=== PATIENT | female | born 1955 | race Caucasian/White ===

== ENCOUNTER 2018-10-01 06:13 | Inpatient (IN) | payer MEDICARE, MEDICAID ==
[~2018-10-01] VITALS: Ht 152.4 cm; Wt 91.3 kg
[2018-10-01] VITALS (44 sets, daily range): BP systolic 105–212; BP diastolic 45–113
[~2018-10-01 06:13] MED LIST: ATOR20TA PO; BECL8.7A6 INH; GABA-529 PO; HYDR-1717 PO; LEVVL SQ; LOSA50TA3 PO; PRO AIR INH; SITA100T11 PO
[2018-10-01] MEDS ORDERED: LINA5TAB PO (08:34)
[2018-10-01] MEDS ORDERED: CYCL5TAB PO (08:34)
[2018-10-01] MEDS ORDERED: LORA10TA7 PO (08:34)
[2018-10-01] MEDS ORDERED: GELATIN SPONGE,ABSORBABLE 12-7MM SPONGE ONE (09:31)
[2018-10-01] MEDS ORDERED: THROMBIN (BOVINE) 5000 UNITS/VIAL TOP ONE ×2 (09:32→09:33)
[2018-10-01] MEDS ORDERED: BACITRACIN 50,000 UNITS/VIAL ONE (09:33)
[2018-10-01] MEDS ORDERED: LIDOCAINE HCL/EPINEPHRINE 1%-EPI 1:100,000 20 ML VIAL ONE (09:33)
[2018-10-01] MEDS ORDERED: PROPOFOL 200MG/20ML VIAL IV ONE (10:58)
[2018-10-01] MEDS ORDERED: GLYCOPYRROLATE 0.2 MG/ML 2ML VIAL ONE (10:58)
[2018-10-01] MEDS ORDERED: MIDAZOLAM HCL 2 MG/2 ML VIAL ONE (10:58)
[2018-10-01] MEDS ORDERED: FENTANYL CITRATE/PF 50MCG/ML 2ML VIAL ONE ×2 (10:58→12:04)
[2018-10-01] MEDS ORDERED: NEOSTIGMINE METHYLSULFATE 1MG/ML 10 ML VIAL ONE (10:58)
[2018-10-01] MEDS ORDERED: ROCURONIUM BROMIDE 10MG/ML VIAL 5ML IV ONE (10:58)
[2018-10-01] MEDS ORDERED: ONDANSETRON HCL 4MG/2ML INJ IV PRN ×3 (11:45→14:00)
[2018-10-01] MEDS ORDERED: HYDROCODONE/APAP 7.5/325MG 1 TAB TABLET PO PRN (11:45)
[2018-10-01] MEDS ORDERED: SUCCINYLCHOLINE CHLORIDE 200MG/10ML IV ONE (12:03)
[2018-10-01] MEDS ORDERED: METOCLOPRAMIDE HCL 10MG/2ML VIAL ONE (12:03)
[2018-10-01] MEDS ORDERED: ESMOLOL HCL 10MG/ML 10ML VIAL IV ONE (12:06)
[2018-10-01] MEDS ORDERED: HYDROMORPHONE HCL/PF 2MG/ML CPJ IV PRN (12:45)
[2018-10-01] MEDS ORDERED: FENTANYL CITRATE/PF 50MCG/ML 2ML VIAL IV PRN (12:45)
[2018-10-01] MEDS ORDERED: MEPERIDINE HCL/PF 25MG/ML CPJ IV PRN (12:45)
[2018-10-01] MEDS ORDERED: MORPHINE SULFATE 2 MG/ML CPJ (NOT FOR IM USE) IV PRN ×2 (12:45→14:00)
[2018-10-01] MEDS ORDERED: NICARDIPINE 100 MG in SODIUM CHLORIDE 0.9% 60 ML IV PRN (13:00)
[2018-10-01] MEDS ORDERED: NALOXONE INJ IV PRN (13:15)
[2018-10-01] MEDS ORDERED: ONDANSETRON INJ IV PRN (13:15)
[2018-10-01] MEDS ORDERED: DIPHENHYDRAMINE INJ IV PRN (13:15)
[2018-10-01] MEDS ORDERED: HYDROMORPHONE PCA 10MG/50ML IV PRN (13:15)
[2018-10-01] MEDS: DEXAMETHASONE 4MG/ML 1ML VIAL IV SCH ×3 (13:31→23:07)
[2018-10-01] MEDS: DEXT 5%/LACTATED RINGERS 1,000 ML IV SCH ×2 (13:38→23:07)
[2018-10-01] MEDS: MORPHINE SULFATE 4 MG/ML CPJ (NOT FOR IM USE) IV PRN (13:47)
[2018-10-01] MEDS ORDERED: IPRATROPIUM/ALBUTEROL 0.5-3(2.5)MG/3ML NEB INH PRN (14:00)
[2018-10-01] MEDS ORDERED: HYDROCODONE/ACETAMINOPHEN 5/325MG TABLET PO PRN (14:00)
[2018-10-01] MEDS ORDERED: CEFAZOLIN SODIUM 1000MG/VIAL IV SCH (14:00)
[2018-10-01] MEDS ORDERED: CLONIDINE 0.1MG TABLET PO PRN (14:00)
[2018-10-01] MEDS ORDERED: DEXTROSE 50% WATER 50ML SYRINGE IV PRN (14:45)
[2018-10-01] MEDS: BLOOD SUGAR DIAGNOSTIC STRIP TEST SCH ×2 (16:57→20:25)
[2018-10-01] MEDS: INSULIN LISPRO 100 UNITS/ML SUBCUT SCH ×2 (17:09→20:25)
[2018-10-01] MEDS ORDERED: LOSA50TA20 MT (19:58)
[2018-10-01] MEDS ORDERED: ZOLP10TA6 MT (20:06)
[2018-10-01] MEDS: CEFAZOLIN 1000MG PREMIX 50 ML IV SCH (20:23)
[2018-10-02] VITALS (75 sets, daily range): BP systolic 98–176; BP diastolic 47–172
[2018-10-02] MEDS: DEXAMETHASONE 4MG/ML 1ML VIAL IV SCH ×2 (05:01→12:02)
[2018-10-02] MEDS: CEFAZOLIN 1000MG PREMIX 50 ML IV SCH ×2 (05:01→13:29)
[2018-10-02 06:11] LABS: HEMATOCRIT. 33.2 % (36.0-48.0); HEMOGLOBIN. 10.1 g/dL (12.0-16.0); MEAN CORPUSCULAR HEMOGLOBIN 22.7 pg (28.0-32.0); MEAN CORPUSCULAR VOLUME 74.7 fL (81.0-99.0); MEAN PLATELET VOLUME 8.3 fl (7.4-10.4); PLATELET 297 x1000/uL (130-400); RED BLOOD CELL COUNT 4.45 mill/uL (4.2-5.4); RED CELL DISTRIBUTION WIDTH 17.2 % (11.6-14.6)
[2018-10-02] MEDS: BLOOD SUGAR DIAGNOSTIC STRIP TEST SCH ×4 (06:24→21:08)
[2018-10-02] MEDS: INSULIN LISPRO 100 UNITS/ML SUBCUT SCH ×4 (06:24→21:07)
[2018-10-02 06:33] LABS: CHLORIDE 101 mEq/L (98-107)
[2018-10-02 06:49] LABS: LDL CHOLESTEROL 119 mg/dL (5-100)
[2018-10-02 06:50] LABS: HDL CHOLESTEROL 59 mg/dL (40-59)
[2018-10-02 06:51] LABS: T4 FREE 1.36 ng/dL (0.76-1.46)
[2018-10-02 08:38] LABS: PLATELET ESTIMATE NORMAL
[2018-10-02] MEDS: DEXT 5%/LACTATED RINGERS 1,000 ML IV SCH (12:08)
[2018-10-02] MEDS ORDERED: MEDICATION NOT ON FORMULARY EA (Losartan Potassium 1 TAB) MT SCH (12:15)
[2018-10-02] MEDS ORDERED: LINAGLIPTIN 5 MG PO SCH (12:15)
[2018-10-02] MEDS ORDERED: INSULIN GLARGINE UD 100 UNITS/ML SYR SUBCUT NR (12:30)
[2018-10-02] MEDS: GABAPENTIN 100MG CAPSULE PO SCH ×2 (13:00→16:53)
[2018-10-02] MEDS ORDERED: MEDICATION NOT ON FORMULARY EA (Gabapentin 100 MG) PO SCH (13:00)
[2018-10-02] MEDS: LOSARTAN POTASSIUM 50 MG TABLET PO SCH (16:53)
[2018-10-02] MEDS: LINAGLIPTIN 5MG TABLET PO SCH (16:54)
[2018-10-02 19:36] LABS: PROTHROMBIN TIME 10.2 sec (9.1-11.1)
[2018-10-02] MEDS ORDERED: LEVOFLOXACIN 500MG PREMIX 100 ML IV SCH (20:00)
[2018-10-02] MEDS ORDERED: ATORVASTATIN CALCIUM 20MG TABLET PO SCH (21:00)
[2018-10-02] MEDS ORDERED: ZOLPIDEM TARTRATE 5MG TABLET PO PRN (21:00)
[2018-10-02] MEDS: INSULIN GLARGINE UD 100 UNITS/ML SYR SUBCUT SCH (21:07)
[2018-10-03] VITALS: BP 151/82
[2018-10-03 04:00] VITALS: BP 163/88
[2018-10-03] MEDS: MORPHINE SULFATE 4 MG/ML CPJ (NOT FOR IM USE) IV PRN (06:19)
[2018-10-03] MEDS: BLOOD SUGAR DIAGNOSTIC STRIP TEST SCH ×2 (06:19→12:20)
[2018-10-03 07:05] LABS: HEMATOCRIT 32.9 % (36.0-48.0); HEMOGLOBIN 10.1 g/dL (12.0-16.0); PLATELET 343 x1000/uL (130-400); RED BLOOD CELL COUNT 4.39 mill/uL (4.2-5.4)
[2018-10-03 07:22] LABS: CHLORIDE 103 mEq/L (98-107)
[2018-10-03 08:00] VITALS: BP 106/69
[2018-10-03] MEDS: GABAPENTIN 100MG CAPSULE PO SCH ×2 (08:19→14:09)
[2018-10-03] MEDS: LOSARTAN POTASSIUM 50 MG TABLET PO SCH (08:19)
[2018-10-03] MEDS: LINAGLIPTIN 5MG TABLET PO SCH (08:19)
[2018-10-03] MEDS: INSULIN LISPRO 100 UNITS/ML SUBCUT SCH ×2 (08:23→14:11)
[2018-10-03] MEDS ORDERED: MEDICATION NOT ON FORMULARY EA (Sitagliptin Phosphate (Januvia) 100 MG) PO SCH (09:00)
[2018-10-03] MEDS ORDERED: INSULIN GLARGINE UD 100 UNITS/ML SYR SUBCUT SCH (10:00)
[2018-10-03] MEDS: INSULIN GLARGINE UD 100 UNITS/ML SYR SUBCUT SCH (11:37)
[2018-10-03 12:00] VITALS: BP 112/67
[2018-10-03 16:00] VITALS: BP 147/71
[2018-10-03 17:00] VITALS: BP 147/71
== END 2018-10-03 17:25 | disposition home health service (06) | DRG 471 ==
LOC: OR 06:13 → MICUSO 06:14 → 6EST 10-02 22:17
PROVIDERS: ADMIT Neurological Surgery; ATTEND Neurological Surgery
PROC: 0RG10K0 Fusion of Cervical Vertebral Joint with Nonautologous Tissue Substitute, Anterior Approach, Anterior Column, Open Approach (ICD-10-PCS; principal; 2018-10-01)
PROC: 4A11X4G Monitoring of Peripheral Nervous Electrical Activity, Intraoperative, External Approach (ICD-10-PCS; 2018-10-01)
DX: M48.02 Spinal stenosis, cervical region (principal); G82.50 Quadriplegia, unspecified; M47.12 Other spondylosis with myelopathy, cervical region; G95.20 Unspecified cord compression; E87.1 Hypo-osmolality and hyponatremia; J45.901 Unspecified asthma with (acute) exacerbation; N39.0 Urinary tract infection, site not specified; E66.2 Morbid (severe) obesity with alveolar hypoventilation; M47.22 Other spondylosis with radiculopathy, cervical region; I10 Essential (primary) hypertension; E78.5 Hyperlipidemia, unspecified; E11.9 Type 2 diabetes mellitus without complications; Z68.39 Body mass index [BMI] 39.0-39.9, adult; Z91.041 Radiographic dye allergy status
CPT/HCPCS: 36415; 71045; 72040; 76000; 80048; 80061; 82962; 83036; 84439; 84443; 85027; 86850; 86900; 88304; 88311; 93970; 95925; 95926; 95928; 95929; 97116; 97163; 97166; C1713; J0330; J0690; J1100; J1170; J1815; J1956; J2250; J2270; J2405; J2704; J2710; J2765; J3010; J3490; J7040; J7121; L0172

== ENCOUNTER 2020-12-15 12:08 | Inpatient (IN) | payer MEDICARE, MEDICAID ==
[~2020-12-15] VITALS: Ht 152.4 cm; Wt 95.3 kg
[~2020-12-15 12:08] MED LIST changes: +CYCL5TAB PO; +LINA5TAB PO; +LORA10TA7 PO; +LOSA50TA41 MT; +ZOLP10TA6 MT
[2020-12-15] MEDS ORDERED: KETOROLAC 60MG/2ML VIAL IM ONE (14:15)
[2020-12-15] MEDS ORDERED: AMLODIPINE 10MG TABLET PO ONE (14:15)
[2020-12-15] MEDS ORDERED: GUAIFENESIN 200MG/10ML SUGAR FREE UDC PO PRN (16:30)
[2020-12-15] MEDS ORDERED: NA PHOS,M-B/NA PHOS,DI-BA ENEMA 118ML PR PRN (16:30)
[2020-12-15] MEDS ORDERED: DIPHENHYDRAMINE 50MG/ML VIAL IV PRN (16:30)
[2020-12-15] MEDS ORDERED: MAGNESIUM/ALUMINUM HYDROXIDE/SIMETHICONE 30ML UDC PO PRN (16:30)
[2020-12-15] MEDS ORDERED: DOCUSATE SODIUM 100MG CAPSULE PO PRN (16:30)
[2020-12-15] MEDS ORDERED: IPRATROPIUM/ALBUTEROL 0.5-3(2.5)MG/3ML NEB NEB PRN (16:30)
[2020-12-15] MEDS ORDERED: CLONIDINE 0.1MG TABLET PO PRN (16:30)
[2020-12-15] MEDS ORDERED: HYDRALAZINE 20MG/ML VIAL IV PRN (16:30)
[2020-12-15] MEDS ORDERED: ACETAMINOPHEN 325MG TABLET PO PRN (16:30)
[2020-12-15] MEDS ORDERED: ACETAMINOPHEN 650MG SUPP PR PRN (16:30)
[2020-12-15] MEDS ORDERED: ONDANSETRON HCL 4MG/2ML INJ IV PRN (16:30)
[2020-12-15] MEDS ORDERED: DEXTROSE 50% WATER 50ML SYRINGE IV PRN (16:30)
[2020-12-15] MEDS: BLOOD SUGAR DIAGNOSTIC STRIP TEST SCH ×2 (17:00→21:50)
[2020-12-15] MEDS ORDERED: MORPHINE SULFATE 4 MG/ML CPJ (NOT FOR IM USE) IV STA (17:07)
[2020-12-15] MEDS ORDERED: ONDANSETRON HCL 4MG/2ML INJ IV STA (17:07)
[2020-12-15 17:10] LABS: BASOPHILS % 0.7 % (0.0-2.0); EOSINOPHILS % 0.4 % (0.0-5.0); HEMATOCRIT. 35.7 % (36.0-48.0); HEMOGLOBIN. 11.4 g/dL (12.0-16.0); LYMPHOCYTES % 14.3 % (20.0-50.0); MEAN CORPUSCULAR VOLUME 74.9 fL (81.0-99.0); MEAN PLATELET VOLUME 7.8 fl (7.4-10.4); MONOCYTES % 4.6 % (2.0-8.0); PLATELET 325 x1000/uL (130-400); RED BLOOD CELL COUNT 4.76 mill/uL (4.2-5.4); RED CELL DISTRIBUTION WIDTH 17.4 % (11.6-14.6)
[2020-12-15] MEDS ORDERED: SODIUM CHLORIDE 0.9% 1,000 ML IV ONE (17:15)
[2020-12-15 17:21] LABS: CHLORIDE 96 mEq/L (98-107)
[2020-12-15 17:22] LABS: PROTHROMBIN TIME 10.7 sec (9.6-11.0)
[2020-12-15] MEDS: INSULIN LISPRO 100 UNITS/ML SUBCUT SCH ×2 (18:36→21:00)
[2020-12-15 20:51] LABS: CLARITY URINE CLEAR (CLEAR); COLOR URINE YELLOW (YELLOW); KETONES URINE NEGATIVE (NEGATIVE); LEUKOCYTE ESTERASE URINE NEGATIVE (NEGATIVE); NITRITE URINE NEGATIVE (NEGATIVE); OCCULT BLOOD URINE NEGATIVE (NEGATIVE); PH URINE 7.5 (4.5-8.0); PROTEIN URINE NEGATIVE (NEGATIVE); SPECIFIC GRAVITY URINE 1.005 (1.005-1.030); UROBILINOGEN URINE 0.2 E.U./dL (0.2-1.0)
[2020-12-15 21:00] VITALS: BP 108/75
[2020-12-15] MEDS: FAMOTIDINE 20MG TABLET PO SCH ×2 (21:00→21:43)
[2020-12-15] MEDS: AMLODIPINE 5MG TABLET PO SCH (21:00)
[2020-12-15] MEDS: HYDRALAZINE HCL 50MG TABLET PO SCH (21:38)
[2020-12-15] MEDS: LORAZEPAM 0.5MG TABLET PO PRN (23:06)
[2020-12-15] MEDS: HYDROCODONE/ACETAMINOPHEN 5/325MG TABLET PO PRN (23:17)
[2020-12-16] VITALS (7 sets, daily range): BP systolic 86–159; BP diastolic 44–78
[2020-12-16] MEDS ORDERED: LOSA25TA3 MT (04:06)
[2020-12-16] MEDS ORDERED: ZOLP10TA2 PO (04:06)
[2020-12-16] MEDS ORDERED: HYDR-4009 PO (04:06)
[2020-12-16] MEDS ORDERED: GABA-529 PO (04:06)
[2020-12-16] MEDS: MORPHINE SULFATE 2 MG/ML CPJ (NOT FOR IM USE) IV PRN ×4 (04:30→21:22)
[2020-12-16] MEDS: HYDRALAZINE HCL 50MG TABLET PO SCH ×3 (06:25→21:12)
[2020-12-16 06:27] LABS: CHLORIDE 103 mEq/L (98-107)
[2020-12-16] MEDS: BLOOD SUGAR DIAGNOSTIC STRIP TEST SCH ×4 (06:28→21:01)
[2020-12-16 06:46] LABS: LDL CHOLESTEROL 133 mg/dL (5-100)
[2020-12-16 06:47] LABS: HDL CHOLESTEROL 55 mg/dL (40-59)
[2020-12-16 06:48] LABS: T4 FREE 1.28 ng/dL (0.76-1.46)
[2020-12-16] MEDS: INSULIN LISPRO 100 UNITS/ML SUBCUT SCH ×4 (07:00→21:20)
[2020-12-16 07:09] LABS: BASOPHILS % 0.4 % (0.0-2.0); EOSINOPHILS % 1.5 % (0.0-5.0); HEMATOCRIT. 32.6 % (36.0-48.0); HEMOGLOBIN. 10.4 g/dL (12.0-16.0); LYMPHOCYTES % 28.9 % (20.0-50.0); MEAN CORPUSCULAR HEMOGLOBIN 24.1 pg (28.0-32.0); MEAN CORPUSCULAR VOLUME 75.3 fL (81.0-99.0); MEAN PLATELET VOLUME 8.1 fl (7.4-10.4); MONOCYTES % 6.3 % (2.0-8.0); NEUTROPHILS % 62.9 % (40.0-76.0); PLATELET 299 x1000/uL (130-400); RED BLOOD CELL COUNT 4.33 mill/uL (4.2-5.4); RED CELL DISTRIBUTION WIDTH 17.7 % (11.6-14.6)
[2020-12-16] MEDS: AMLODIPINE 5MG TABLET PO SCH ×2 (09:08→21:11)
[2020-12-16] MEDS: HYDROCODONE/ACETAMINOPHEN 5/325MG TABLET PO PRN (12:52)
[2020-12-16] MEDS ORDERED: HYDROCODONE/APAP 7.5/325MG 1 TAB TABLET PO PRN (16:15)
[2020-12-16] MEDS: FAMOTIDINE 20MG TABLET PO SCH (21:12)
[2020-12-16] MEDS: LORAZEPAM 0.5MG TABLET PO PRN (21:12)
[2020-12-17] VITALS: BP 121/63
[2020-12-17 04:00] VITALS: BP 109/53
[2020-12-17] MEDS: HYDRALAZINE HCL 50MG TABLET PO SCH ×3 (05:50→21:28)
[2020-12-17] MEDS: BLOOD SUGAR DIAGNOSTIC STRIP TEST SCH ×4 (06:30→20:46)
[2020-12-17 07:26] LABS: BASOPHILS % 0.5 % (0.0-2.0); EOSINOPHILS % 1.2 % (0.0-5.0); HEMATOCRIT. 32.2 % (36.0-48.0); HEMOGLOBIN. 10.2 g/dL (12.0-16.0); LYMPHOCYTES % 24.6 % (20.0-50.0); MEAN CORPUSCULAR VOLUME 75.4 fL (81.0-99.0); MEAN PLATELET VOLUME 8.2 fl (7.4-10.4); MONOCYTES % 6.5 % (2.0-8.0); NEUTROPHILS % 67.2 % (40.0-76.0); PLATELET 306 x1000/uL (130-400); RED BLOOD CELL COUNT 4.26 mill/uL (4.2-5.4); RED CELL DISTRIBUTION WIDTH 17.5 % (11.6-14.6)
[2020-12-17 07:35] LABS: CHLORIDE 103 mEq/L (98-107)
[2020-12-17 08:00] VITALS: BP 128/49
[2020-12-17] MEDS: AMLODIPINE 5MG TABLET PO SCH ×2 (09:17→20:46)
[2020-12-17] MEDS: MORPHINE SULFATE 2 MG/ML CPJ (NOT FOR IM USE) IV PRN ×4 (09:17→23:00)
[2020-12-17] MEDS: INSULIN LISPRO 100 UNITS/ML SUBCUT SCH ×4 (09:52→20:48)
[2020-12-17 12:00] VITALS: BP 124/62
[2020-12-17] MEDS: NAPROXEN 250MG TABLET PO SCH ×2 (13:00→17:50)
[2020-12-17 16:00] VITALS: BP 115/59
[2020-12-17] MEDS ORDERED: HYDRALAZINE 10 MG in SODIUM CHLORIDE 0.9% 49.5 ML IV PRN (16:15)
[2020-12-17] MEDS: LIDOCAINE 5% PATCH TOP SCH (16:21)
[2020-12-17] MEDS ORDERED: HYDR-4001 MT (16:46)
[2020-12-17 20:00] VITALS: BP 116/69
[2020-12-17] MEDS: FAMOTIDINE 20MG TABLET PO SCH (20:46)
[2020-12-17] MEDS: LORAZEPAM 0.5MG TABLET PO PRN (21:27)
[2020-12-18] VITALS: BP 102/58
[2020-12-18 04:00] VITALS: BP 112/57
[2020-12-18] MEDS: HYDRALAZINE HCL 50MG TABLET PO SCH (05:31)
[2020-12-18 06:04] LABS: CHLORIDE 102 mEq/L (98-107)
[2020-12-18 06:14] LABS: BASOPHILS % 0.6 % (0.0-2.0); EOSINOPHILS % 1.2 % (0.0-5.0); HEMATOCRIT. 33.5 % (36.0-48.0); HEMOGLOBIN. 10.6 g/dL (12.0-16.0); LYMPHOCYTES % 30.2 % (20.0-50.0); MEAN PLATELET VOLUME 8.4 fl (7.4-10.4); MONOCYTES % 6.2 % (2.0-8.0); NEUTROPHILS % 61.8 % (40.0-76.0); PLATELET 316 x1000/uL (130-400); RED BLOOD CELL COUNT 4.41 mill/uL (4.2-5.4); RED CELL DISTRIBUTION WIDTH 17.6 % (11.6-14.6)
[2020-12-18] MEDS: BLOOD SUGAR DIAGNOSTIC STRIP TEST SCH (06:24)
[2020-12-18] MEDS: NAPROXEN 250MG TABLET PO SCH (07:50)
[2020-12-18 08:00] VITALS: BP 154/70
[2020-12-18 08:11] VITALS: BP 154/78
[2020-12-18] MEDS: INSULIN LISPRO 100 UNITS/ML SUBCUT SCH (08:41)
[2020-12-18] MEDS: AMLODIPINE 5MG TABLET PO SCH (09:44)
[2020-12-18 09:45] VITALS: BP 154/78
[2020-12-18] MEDS: LIDOCAINE 5% PATCH TOP SCH (09:45)
== END 2020-12-18 10:15 | disposition home or self-care (01) | DRG 553 ==
LOC: ER 14:28 → SUPCPDRO 16:49 → 6EST 18:23 → EDBEDREQSVC 18:26 → EDBEDREQTM 18:26 → EDBEDREQ 18:26 → ENRESERV 19:57
PROVIDERS: ADMIT Internal Medicine; ATTEND Internal Medicine
DX: M16.11 Unilateral primary osteoarthritis, right hip (principal); I50.33 Acute on chronic diastolic (congestive) heart failure; Z68.41 Body mass index [BMI] 40.0-44.9, adult; E66.01 Morbid (severe) obesity due to excess calories; I11.0 Hypertensive heart disease with heart failure; E78.5 Hyperlipidemia, unspecified; M17.11 Unilateral primary osteoarthritis, right knee; E78.00 Pure hypercholesterolemia, unspecified; G89.29 Other chronic pain; M25.78 Osteophyte, vertebrae; M41.9 Scoliosis, unspecified; M46.06 Spinal enthesopathy, lumbar region; E11.9 Type 2 diabetes mellitus without complications; M47.816 Spondylosis without myelopathy or radiculopathy, lumbar region; M48.061 Spinal stenosis, lumbar region without neurogenic claudication; Z79.4 Long term (current) use of insulin; Z79.51 Long term (current) use of inhaled steroids; Z79.899 Other long term (current) drug therapy; Z82.49 Family history of ischemic heart disease and other diseases of the circulatory system; Z83.3 Family history of diabetes mellitus; Z87.11 Personal history of peptic ulcer disease; Z98.84 Bariatric surgery status; Z88.4 Allergy status to anesthetic agent
CPT/HCPCS: 36415; 71045; 72100; 72148; 73700; 80048; 80053; 80061; 81003; 82962; 83036; 84439; 84443; 85025; 93005; 93306; 93970; 97162; 99285; J1815; J1885; J2270; J2405; J7030